=== PATIENT | female | born 1945 | race Caucasian/White ===

== ENCOUNTER → 2016-06-05 | Outpatient (CLI) | payer MEDICARE, OTHER ==
[2016-06-05 10:40] LABS: Basophils % (A) 1 %; CH 29.3; CHCM 33.3; Eosinophils # (A) 0.1 k/uL (0-0.7); Eosinophils % (A) 2 %; HCT 44.8 % (34.0-46.0); HDW 2.41; HGB 14.3 gm/dL (11.4-16.0); Luc # (Auto) 0.08; Luc % (Auto) 2; Lymphocytes # (A) 1.7 k/uL (1.0-4.8); Lymphocytes % (A) 37 %; MCH 28.3 pg (25.0-35.0); MCHC 31.8 g/dL (31.0-37.0); MCV 88.7 fL (80.0-100.0); Mean Platelet Volume 6.9; Monocytes # (A) 0.3 k/uL (0-1.0); Monocytes % (A) 6 %; Neutrophils # (A) 2.3 k/uL (1.3-7.7); Neutrophils % (A) 51 %; RBC 5.05 m/uL (3.80-5.40); RDW 13.4 % (11.5-15.5); WBC 4.5 k/uL (3.8-10.6)
[2016-06-05 11:01] LABS: ALT 37 U/L (9-52); AST 24 U/L (14-36); Alkaline Phosphatase 61 U/L (38-126); Anion Gap 10 mmol/L; Blood Urea Nitrogen 14 mg/dL (7-17); Calcium 9.9 mg/dL (8.4-10.2); Carbon Dioxide 29 mmol/L (22-30); Chloride 103 mmol/L (98-107); Cholesterol 204 mg/dL (<200); Creatine Kinase 69 U/L (30-135); Glucose 96 mg/dL (74-99); HDL Cholesterol 69 mg/dL (40-60); Non-African American GFR(MDRD) >60 (>60 ml/min/1.73 sqM); Sodium 142 mmol/L (137-145); Total Bilirubin 0.6 mg/dL (0.2-1.3); Total Protein 7.1 g/dL (6.3-8.2); Triglycerides 106 mg/dL (<150)
== END | disposition home or self-care (01) ==
LOC: LABWHC1 10:00
PROVIDERS: ATTEND Family Medicine
DX: E78.5 Hyperlipidemia, unspecified (principal); E03.9 Hypothyroidism, unspecified
CPT/HCPCS: 36415; 80053; 80061; 82550; 84439; 84443; 85025

== ENCOUNTER → 2019-04-08 | Outpatient (CLI) | payer MEDICARE, OTHER ==
--- NOTE | 2019-04-09 14:38 | MM ---
Reason for exam: screening (asymptomatic). History: Patient is postmenopausal and is nulliparous. Family history of breast cancer in aunt. Physical Findings: A clinical breast exam by your physician is recommended on an annual basis and results should be correlated with mammographic findings. MG 3D Screening Mammo W/Cad Bilateral CC and MLO view(s) were taken. The breast tissue is heterogeneously dense. This may lower the sensitivity of mammography. There are benign appearing round calcifications bilaterally. Asymmetric breast tissue left upper breast, stable. There is no discrete abnormality. ASSESSMENT: Benign, BI-RAD 2 RECOMMENDATION: Routine screening mammogram of both breasts in 1 year.
== END | disposition home or self-care (01) ==
LOC: RADMAMWWP 14:27
PROVIDERS: ATTEND Family Medicine
DX: Z12.31 Encounter for screening mammogram for malignant neoplasm of breast (principal)
CPT/HCPCS: 77063; 77067

== ENCOUNTER 2019-06-13 15:51 | Observation (INO) | payer MEDICARE, OTHER ==
[2019-06-13] MEDS ORDERED: SODIUM CHLORIDE 0.9% 1,000 ML IV STA (16:56)
--- NOTE | 2019-06-13 16:56 | ED ---
Chest Pain HPI - General Chief Complaint: Chest Pain Stated Complaint: chest pressure Time Seen by Provider: 06/13/19 16:19 Source: patient, RN notes reviewed, old records reviewed Mode of arrival: ambulatory Limitations: no limitations - History of Present Illness Initial Comments: This is a 73-year-old female here with multiple nonspecific complaints. Patient complaining of multiple respiratory symptoms cough congestion runny nose nausea no vomiting also complaining of baby's test. No significant shortness of breath or sweating. Patient has occasional chills but no fevers. Otherwise no travel history no sick contacts patient without significant other complaining patient has been on multiple different outpatient medications including upper respiratory medications antibiotics and steroids with no help MD Complaint: chest pain, other (URI symptoms) -: days(s) Onset: during rest Pain Location: substernal Pain Radiation: none Severity: moderate Severity scale (1-10): 5 Quality: tightness, aching Consistency: intermittent Improves With: nothing, nitroglycerin Worsens With: nothing Context: recent illness Anginal Symptoms: nausea, dyspnea Other Symptoms: cough Treatments Prior to Arrival: none - Related Data Home Medications Medication Instructions Recorded Confirmed Atorvastatin [Lipitor] 40 mg PO DAILY 05/01/16 05/01/16 Levothyroxine Sodium [Synthroid] 75 mcg PO DAILY 05/01/16 05/01/16 Previous Rx's Medication Instructions Recorded Aspirin 81 mg PO DAILY #30 chewable 05/03/16 LORazepam [Ativan] 0.5 mg PO BID PRN #20 tab 05/03/16 Nitroglycerin Sl Tabs [Nitrostat] 0.4 mg SUBLINGUAL Q5M PRN #50 tab 05/03/16 Allergies Allergy/AdvReac Type Severity Reaction Status Date / Time diazepam Allergy Unknown Verified 06/13/19 15:55 hydroxyzine [From Atarax] Allergy Unknown Verified 06/13/19 15:55 lidocaine Allergy Unknown Verified 06/13/19 15:55 tetrahydrozoline Allergy Unknown Verified 06/13/19 15:55 [From Visine] Review of Systems ROS Statement: Those systems with pertinent positive or pertinent negative responses have been documented in the HPI. ROS Other: All systems not noted in ROS Statement are negative. EKG Findings - EKG Comments: EKG Findings:: EKG shows sinus a rate of 78, NE 132, QRS 90, QTc 478 Past Medical History Past Medical History: Hyperlipidemia, Thyroid Disorder History of Any Multi-Drug Resistant Organisms: None Reported Past Surgical History: Hysterectomy, Tonsillectomy Past Anesthesia/Blood Transfusion Reactions: No Reported Reaction Past Psychological History: Depression Smoking Status: Never smoker Past Alcohol Use History: None Reported Past Drug Use History: None Reported - Past Family History Mother Family Medical History: Coronary Artery Disease (CAD) Father Family Medical History: Dementia General Exam Limitations: no limitations General appearance: alert, in no apparent distress Head exam: Present: atraumatic, normocephalic, normal inspection Eye exam: Present: normal appearance, PERRL, EOMI. Absent: scleral icterus, conjunctival injection, periorbital swelling ENT exam: Present: normal exam, mucous membranes moist Neck exam: Present: normal inspection. Absent: tenderness, meningismus, lymphadenopathy Respiratory exam: Present: normal lung sounds bilaterally. Absent: respiratory distress, wheezes, rales, rhonchi, stridor Cardiovascular Exam: Present: regular rate, normal rhythm, normal heart sounds. Absent: systolic murmur, diastolic murmur, rubs, gallop, clicks GI/Abdominal exam: Present: soft, normal bowel sounds. Absent: distended, tenderness, guarding, rebound, rigid Extremities exam: Present: normal inspection, full ROM, normal capillary refill. Absent: tenderness, pedal edema, joint swelling, calf tenderness Back exam: Present: normal inspection Neurological exam: Present: alert, oriented X3, CN II-XII intact Psychiatric exam: Present: normal affect, normal mood Skin exam: Present: warm, dry, intact, normal color. 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 cherry agrees for admissionspoke w Dr Red damico for admission Chest Pain MDM - MDM 73 female to the ED for evaluation patient is a for evaluation regarding abdominal pain. Chest pain. Patient be admitted for chest pain observation as her symptoms have not improved throughout ER stay patient does not feel comfortable with discharge Disposition Clinical Impression: Chest pain, Atypical chest pain Disposition: ADMITTED IP TO THIS HOSP Condition: Fair Is patient prescribed a controlled substance at d/c from ED?: No Referrals: Jaun Villegas MD [Primary Care Provider] - 1-2 days
[2019-06-13 17:32] LABS: Basophils % (A) 1 %; Eosinophils # (A) 0.1 k/uL (0-0.7); Eosinophils % (A) 2 %; HCT 42.1 % (34.0-46.0); HGB 13.8 gm/dL (11.4-16.0); Lymphocytes # (A) 1.3 k/uL (1.0-4.8); Lymphocytes % (A) 19 %; MCHC 32.9 g/dL (31.0-37.0); MCV 88.2 fL (80.0-100.0); Mean Platelet Volume 7.3; Monocytes # (A) 0.2 k/uL (0-1.0); Monocytes % (A) 3 %; Neutrophils # (A) 5.2 k/uL (1.3-7.7); Neutrophils % (A) 75 %; Platelet Count 238 k/uL (150-450); RBC 4.77 m/uL (3.80-5.40); WBC 6.9 k/uL (3.8-10.6)
[2019-06-13 17:38] LABS: Albumin 4.1 g/dL (3.5-5.0); Calcium 9.4 mg/dL (8.4-10.2); Phosphorus 3.5 mg/dL (2.5-4.5); Potassium 3.9 mmol/L (3.5-5.1); Total Bilirubin 0.4 mg/dL (0.2-1.3); Total Protein 6.5 g/dL (6.3-8.2)
--- NOTE | 2019-06-13 17:47 | XR ---
EXAMINATION TYPE: XR chest 2V DATE OF EXAM: 06/13/2019 COMPARISON: 04/23/2016 HISTORY: Chest pain with nonproductive cough TECHNIQUE: Frontal and lateral views of the chest are obtained. FINDINGS: There is no focal air space opacity, pleural effusion, or pneumothorax seen. There is pul monary hyperinflation and biapical lucency indicative of underlying COPD. The cardiac silhouette size is within normal limits. The osseous structures are intact. There is diffuse osseous demineralizat ion. Levoscoliosis of the radical lumbar spine. IMPRESSION: No acute cardiopulmonary process. Findings indicative of underlying COPD.
[2019-06-13 17:50] LABS: INR 0.9 (<1.2); Partial Thromboplastin Time 22.5 sec (22.0-30.0); Prothrombin Time 9.6 sec (9.0-12.0)
[2019-06-13] MEDS ORDERED: KETOROLAC 30 MG/ML 1 ML VIAL IVP STA (18:02)
[2019-06-13] MEDS ORDERED: methylPREDNISolone SOD SUCCI 125 MG/2 ML VIAL IV STA (18:02)
[2019-06-13] MEDS ORDERED: IPRATROPIUM-ALBUTEROL 3 ML NEB INHALATION STA (18:02)
[2019-06-13] MEDS ORDERED: MORPHINE SULFATE 4 MG/ML SYRINGE IV PRN (18:54)
[2019-06-13] MEDS ORDERED: ASPIRIN 81 MG PO STA (18:54)
[2019-06-13] MEDS ORDERED: diphenhydrAMINE 50 MG/ML 1 ML VIAL IVP STA (19:11)
[2019-06-13] MEDS ORDERED: FAMOTIDINE 20 MG/2 ML VIAL IV STA (19:22)
[2019-06-13] MEDS: NITROGLYCERIN SL TABS 0.4 MG TAB SUBLINGUAL PRN ×3 (19:44→20:10)
[2019-06-13] MEDS: SODIUM CHLORIDE 0.9% 1,000 ML IV SCH (19:44)
--- NOTE | 2019-06-13 20:26 | CT ---
EXAMINATION TYPE: CT angio chest DATE OF EXAM: 06/13/2019 COMPARISON: None HISTORY: Pain, unspecified. Pt poor historian. Is complaining of chest pain. CT DLP: 971.7 mGycm Automated exposure control for dose reduction was used. CONTRAST: Performed with IV Contrast, patient injected with 100 mL of Isovue 370. There are 3-D post processed images. FINDINGS: There is subsegmental atelectasis in the posterior lung rosales. Heart is borderline enlarged. There a re no hilar masses. There is no pleural effusion. There is no mediastinal adenopathy. Costophrenic an gles are clear. There is no pleural effusion. 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 I see no filling defects in the pulmonary arteries. Thoracic spine is intact. Bony thorax is intact. IMPRESSION: No evidence of pulmonary embolism. Borderline aneurysm ascending aorta. No dissection. No evidence of acute lung disease.
--- NOTE | 2019-06-13 20:40 | CT ---
EXAMINATION TYPE: CT abdomen pelvis w con DATE OF EXAM: 06/13/2019 COMPARISON: None HISTORY: Pain, unspecified. Pt poor historian. Is complaining of chest pain. CT DLP: 971.78 mGycm Automated exposure control for dose reduction was used. CONTRAST: Performed with IV Contrast, patient injected with 100 mL of Isovue 370. Multiple axial sections were obtained from the diaphragm to the floor the pelvis with intravenous con trast. FINDINGS: Lung bases are clear. There is no pleural effusion. There is 1 cm cyst anterior right lobe of the cari er. Gallbladder is distended. Gallbladder measures 3.3 cm in diameter. Spleen is intact stomach is in tact. There is no evidence of pancreatic mass. There is no adrenal mass. 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 T here is no hydronephrosis. There is no retroperitoneal adenopathy. Bladder distends smoothly. There is no inguinal hernia. There is no evidence of a pelvic mass. There is no free fluid in the pelvis. Lumbar disc spaces are fairly normal. Posterior elements are intact. Bony pelvis is intact. There is mild thoracolumbar dextroscoliosis. I see no focal bone destruction. Bony pelvis is intact. Hip joints are intact. Proximal femurs are intact. There is minimal acetabular spurring. There is no mesenteric edema. There is no ascites or free air. There is no sign of a bowel obstructio n. Delayed images show normal renal excretion. Appendix is not seen. No sign of appendicitis. IMPRESSION: There is a horseshoe kidney. No sign of acute abdomen and pelvis. No renal obstruction.
[2019-06-13] MEDS ORDERED: ONDANSETRON 4 MG/2 ML VIAL IVP PRN (22:10)
[2019-06-13] MEDS ORDERED: ATORVASTATIN 20 MG TAB PO SCH (22:15)
--- NOTE | 2019-06-13 22:30 | P.HPIM ---
History of Present Illness H&P Date: 06/13/19 Chief Complaint: chest pain 73-year-old female with history of hypothyroid, hyperlipidemia, history of broken heart syndrome 2.5 years ago Patient comes in today due to worsening chest pain of one-day duration. She reports that over the past week or 2 she's been having off-and-on chest discomfort but today it worse when she woke up she felt that she's having worsening chest pain described it as retrosternal pressure-like chest pain radiating to the right side rated at 10 over 10 in severity get getting worse as the day progressed not associated with any activity, not resolved with rest. She is reporting that pain is not related to deep breath or coughing. She re ports that she's been having upper respiratory infection like symptoms over the past 2 weeks for which he visited her PCP and received no antibiotics for that. However today she felt very weak and sick despite having chest pain she denies any trouble breathing denies nausea denies vomiting however she does report some fevers and chills with the coughing and some diarrhea a few times over the past week. Denies any dizziness denies any lightheadedness denies any palpitations denies any sweating. In the ED her EKG was unremarkable for any acute ST changes nitro did not help with the pain cardiac enzymes are negative chest x-ray did not show any acute process. CT angiogram of the chest did not show any acute PE but did suggest borderline ascending aortic aneurysm. 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 Patient admitted for cardiology evaluation. Otherwise she denies any GI bleeding denies any melena denies any recent traveling or any sick contacts Review of Systems Pertinent positives as noted in HPI. All other systems were reviewed and are negative Past Medical History Past Medical History: Hyperlipidemia, Thyroid Disorder History of Any Multi-Drug Resistant Organisms: None Reported Past Surgical History: Hysterectomy, Tonsillectomy Past Anesthesia/Blood Transfusion Reactions: No Reported Reaction Past Psychological History: Depression Smoking Status: Never smoker Past Alcohol Use History: None Reported Past Drug Use History: None Reported - Past Family History Mother Family Medical History: Coronary Artery Disease (CAD) Father Family Medical History: Dementia Medications and Allergies Home Medications Medication Instructions Recorded Confirmed Type Atorvastatin [Lipitor] 40 mg PO DAILY 05/01/16 05/01/16 History Levothyroxine Sodium [Synthroid] 75 mcg PO DAILY 05/01/16 05/01/16 History Aspirin 81 mg PO DAILY PRN 06/13/19 06/13/19 History Cetirizine HCl [Zyrtec] 5 mg PO DAILY 06/13/19 06/13/19 History Allergies Allergy/AdvReac Type Severity Reaction Status Date / Time diazepam Allergy Unknown Verified 06/13/19 22:03 hydroxyzine [From Atarax] Allergy Unknown Verified 06/13/19 22:03 lidocaine Allergy Unknown Verified 06/13/19 22:03 tetrahydrozoline Allergy Unknown Verified 06/13/19 22:03 [From Visine] Physical Exam Vitals: Vital Signs Temp Pulse Pulse Resp BP Pulse Ox 06/13/19 18:21 97.6 F 06/13/19 18:03 76 18 147/82 96 06/13/19 16:41 73 06/13/19 15:52 97.4 F L 88 18 185/85 97 Intake and Output 06/13/19 06/13/19 06/13/19 06:59 14:59 22:59 Other: Weight 64.41 kg Constitutional: No acute distress, conversant, pleasant Eyes: Anicteric sclerae, moist conjunctiva, no lid-lag Pupils equal round reactive to light ENMT: NC/AT Oropharynx clear, no erythema, exudates Neck: Supple, FROM, no masses, or JVD No carotid bruits No thyromegaly Lungs: Clear to auscultation Clear to percussion Normal respiratory effort, no accessory muscle use Cardiovascular: Heart regular in rate and rhythm, No murmurs, gallops, or rubs No peripheral edema right sided chest pain reproducible with palpation Abdominal: Soft discomfort to deep palpation of the epigastric region , no guarding, rebound or rigidity Abdomen moving with respiration Normoactive bowel sounds No hepatomegaly, No splenomegaly No palpable mass No abdominal wall hernia noted Skin: Normal temperature, tone, texture, turgor No induration No subcutaneous nodules No rash, lesions No ulcers Extremities: No digital cyanosis No clubbing Pedal pulses intact and symmetrical Radial pulses intact and symmetrical No calf tenderness Psychiatric: Alert and oriented to person, place and time Appropriate affect fair judgement Neuro Muscles Strength 5/5 in all 4 extremities Sensation to light touch grossly present throughout Cranial nerves II-XII grossly intact No focal sensory deficits Lymphatics: no palpable cervical or supraclavicular , or inguinal lymph nodes Results CBC & Chem 7: 06/13/19 16:35 06/13/19 16:35 Labs: Abnormal Lab Results - Last 24 Hours (Table) 06/13/19 Range/Units 16:35 Sodium 135 L (137-145) mmol/L Glucose 110 H (74-99) mg/dL Assessment and Plan Assessment: 73-year-old female with history of broken heart syndrome, hyperlipidemia, hypothyroid comes in due to 1 day history of worsening chest painadmitted under observation to rule out underlying acute coronary syndrome Plan: atypical chest pain , , rule out ACS cardiac monitoring trend cardiac enzymes, check ECHO , history of takatsubo syndrome nitro prn morphine prn cardiology evaluation acute bronchitis , 2/2 subacute viral syndrome symptomatic control pain control influenza testing negative hyperlipidemia, continue home meds hypothyroid, continue home meds GI ppx ppi dvt ppx heparin sc tid incidental finding on CTA chest , borderline ascending aortic aneurysm, cardio eval echo cardiogram CT abd showed horse shoe kidney CODE STATUS:full code Discussed with: Patient, ER, RN Anticipated length of stay < than [address]: home A total of 60 minutes was spent on the care of this complex patient more than 50% of the time was spent in counseling and care coordination.
[2019-06-13] MEDS: PANTOPRAZOLE 40 MG TABLET PO SCH (22:54)
[2019-06-14] MEDS: KETOROLAC 30 MG/ML 1 ML VIAL IVP SCH ×2 (03:21→06:07)
[2019-06-14] MEDS: HEPARIN SODIUM,PORCINE 5,000 UNIT/ML 1 ML VIAL SQ SCH ×3 (03:21→15:31)
[2019-06-14 05:36] LABS: Cholesterol 203 mg/dL (<200); HDL Cholesterol 58 mg/dL (40-60); LDL Cholesterol,Calculated 136 mg/dL (0-99); Triglycerides 45 mg/dL (<150)
[2019-06-14] MEDS: LEVOTHYROXINE 75 MCG TAB PO SCH ×2 (06:06→06:09)
[2019-06-14] MEDS: SODIUM CHLORIDE 0.9% 1,000 ML IV SCH (06:06)
[2019-06-14] MEDS ORDERED: CAFFEINE CITRATE 60 MG/3 ML VIAL IV PRN (08:26)
[2019-06-14] MEDS ORDERED: SODIUM CHLORIDE 0.9% IV ONE (08:26)
[2019-06-14] MEDS ORDERED: AMINOPHYLLINE 500 MG/20 ML VIAL IV PRN (08:26)
[2019-06-14] MEDS ORDERED: DIPYRIDAMOLE IV ONE (08:26)
[2019-06-14 08:41] VITALS: RESP 18
[2019-06-14] MEDS ORDERED: ASPIRIN 325 MG TAB PO SCH (09:00)
[2019-06-14] MEDS ORDERED: ASPIRIN 81 MG PO SCH (09:00)
[2019-06-14] MEDS ORDERED: METOPROLOL TARTRATE 25 MG TAB PO SCH (09:00)
[2019-06-14] MEDS ORDERED: FAMOTIDINE 20 MG/2 ML VIAL IV SCH (09:00)
--- NOTE | 2019-06-14 09:11 | US ---
EXAMINATION TYPE: US gallbladder DATE OF EXAM: 06/14/2019 COMPARISON: NONE CLINICAL HISTORY: Abdominal pain. EXAM MEASUREMENTS: Liver Length: 11.7 cm Gallbladder Wall: 0.2 cm CBD: 0.5 cm Right Kidney: 9.1 x 3.3 x 4.4 cm Pancreas: Head obscured by overlying bowel gas Liver: wnl Gallbladder: wnl Evidence for sonographic Bennett's sign: no CBD: wnl Right Kidney: No hydronephrosis or masses seen, inferior pole obscured IMPRESSION: No sonographic evidence of cholelithiasis nor acute cholecystitis. Partial obscuration of the pancreas and right kidney.
--- NOTE | 2019-06-14 09:27 | P.CRDCN ---
History of Present Illness History of present illness: HISTORY OF PRESENTING ILLNESS This is a pleasant 73-year-old female past medical history significant for dyslipidemia, hypothyroidism and chronic ALLERGIES. She follows in the off ice with Dr. Rubi. We have been asked to see in consultation for chest pain. She states for the previous one to 2 weeks she has been experiencing a lot of coughing, facial drainage and upper respiratory congestion. She has been following closely with her primary care physician and has been initiated on steroids and try to couple different courses of antibiotics. However the antibiotics cause some significant GI upset so she therefore has not completed the course. Friday she started developing a discomfort in the chest in the midsternal region with intermittent radiation to the right abdomen. The discomfort was described as an achy sensation. No radiation to the arm, back, neck or jaw. She had some mild associated shortness of breath. Denies nausea, vomiting, diaphoresis, dizziness or palpitations. Last evening while attempting to sleep she continued to have an achy sensation in the chest and noticed numbness and tingling both of her hands and an ache in her jaw. DIAGNOSTICS EKG reveals sinus mechanism with minimal ST depression noted inferolaterally. Chest xray to for an acute cardiopulmonary process with evidence of underlying COPD. CTA of the chest is negative for pulmonary embolism with no acute aortic dissection. CT of the abdomen and pelvis is unremarkable. Ultrasound of the gallbladder negative for cholecystitis. Laboratory reviewed, CBC unremarkable, sodium 135, potassium 3.9, creatinine 0.78, cardiac enzymes negative 3, NT proBNP 129, LDL 136 and TSH is 0.6. Current cardiac medications include aspirin when necessary for pain and atorvastatin 40 mg daily. Most recent stress test and echocardiogram performed in 2016 revealed preserved LV systolic function with ejection fraction 55-60% and no evidence of reversible cardiac ischemia. REVIEW OF SYSTEMS At the time of my exam: CONSTITUTIONAL: Denies fever or chills. CARDIOVASCULAR: Denies chest pain, shortness of breath, orthopnea, PND or palpitations. RESPIRATORY: Denies cough. GASTROINTESTINAL: Denies abdominal pain, diarrhea, constipation, nausea or vomiting. MUSCULOSKELETAL: Denies myalgias. NEUROLOGIC: Denies numbness, tingling or weakness. ENDOCRINE: Denies fatigue, weight change, polydipsia or polyurina. GENITOURINARY: Denies burning, hematuria or urgency with micturation. HEMATOLOGIC: Denies history of anemia or bleeding. PHYSICAL EXAMINATION Blood pressure 134/70 heart rate 82 afebrile and maintaining oxygen saturation on room air. CONSTITUTIONAL: No apparent distress. HEENT: Head is normocephalic. Pupils are equal, round. Sclerae anicteric. Mucous membranes of the mouth are moist. No JVD. No carotid bruit. CHEST EXAMINATION: Lungs are clear to auscultation. No chest wall tenderness is noted on palpation or with deep breathing. HEART EXAMINATION: Regular rate and rhythm. S1, S2 heard. No murmurs, gallops or rub. ABDOMEN: Soft, nontender. Positive bowel sounds. EXTREMITIES: 2+ peripheral pulses, no lower extremity edema and no calf tenderness. NEUROLOGIC EXAMINATION: Patient is awake, alert and oriented x3. ASSESSMENT Chest pain, atypical for angina. An acute coronary event has been ruled out. Dyslipidemia PLAN An acute coronary event has been ruled out. Baseline EKG abnormalities noted. For this reason we'll proceed with a Persantine stress test to assess for reversible cardiac ischemia. If reversibility suspected we will consider coronary angiography. Obtain 2-D echocardiogram and Doppler study to assess cardiac structure and function. Decrease daily aspirin to 81 mg. Initiate Lopressor 25 mg twice a day. Thank you kindly for this consultation. Nurse Practitioner note has been reviewed, I agree with a documented findings and plan of care. Patient was seen and examined. Past Medical History Past Medical History: Hyperlipidemia, Thyroid Disorder Additional Past Medical History / Comment(s): radiation to thyroid, endometriosis History of Any Multi-Drug Resistant Organisms: None Reported Past Surgical History: Hysterectomy, Tonsillectomy Additional Past Surgical History / Comment(s): endometriosis wrapped around bowels surgically resolved Past Anesthesia/Blood Transfusion Reactions: No Reported Reaction Past Psychological History: Depression Smoking Status: Never smoker Past Alcohol Use History: None Reported Past Drug Use History: None Reported - Past Family History Mother Family Medical History: Coronary Artery Disease (CAD) Father Family Medical History: Dementia Medications and Allergies Home Medications Medication Instructions Recorded Confirmed Type Atorvastatin [Lipitor] 40 mg PO HS 05/01/16 06/14/19 History Levothyroxine Sodium [Synthroid] 75 mcg PO DAILY 05/01/16 06/14/19 History Aspirin 162.5 - 325 mg PO QID PRN 06/14/19 06/14/19 History Cetirizine HCl [Zyrtec] 10 mg PO HS 06/14/19 06/14/19 History Clarithromycin [Biaxin] 500 mg PO Q12H 06/14/19 06/14/19 History Allergies Allergy/AdvReac Type Severity Reaction Status Date / Time diazepam Allergy Unknown Verified 06/14/19 08:58 hydroxyzine [From Atarax] Allergy Itching Verified 06/14/19 08:58 lidocaine Allergy Unknown Verified 06/14/19 08:58 tetrahydrozoline Allergy Swelling Verified 06/14/19 08:58 [From Visine] Physical Exam Vitals: Vital Signs Temp Pulse Pulse Pulse Resp BP BP 06/14/19 04:00 98.3 F 75 16 118/49 06/13/19 22:39 98.1 F 79 18 138/68 06/13/19 21:06 98.7 F 85 16 135/81 06/13/19 20:22 98.8 F 102 H 18 144/85 06/13/19 20:05 103 H 20 163/85 06/13/19 19:40 101 H 22 170/80 06/13/19 19:31 98.3 F 100 18 164/75 06/13/19 18:21 97.6 F 06/13/19 18:03 76 18 147/82 06/13/19 16:41 73 06/13/19 15:52 97.4 F L 88 18 185/85 Pulse Ox 06/14/19 04:00 95 06/13/19 22:39 94 L 06/13/19 21:06 93 L 06/13/19 20:22 92 L 06/13/19 20:05 95 06/13/19 19:40 98 06/13/19 19:31 98 06/13/19 18:21 06/13/19 18:03 96 06/13/19 16:41 06/13/19 15:52 97 Intake and Output 06/13/19 06/14/19 06/14/19 22:59 06:59 14:59 Other: Voiding Method Toilet Toilet # Voids 1 Weight 64.41 kg 65 kg Results 06/13/19 16:35 06/13/19 16:35 Cardiac Enzymes 06/13/19 06/13/19 06/13/19 Range/Units 16:35 16:35 22:30 AST 25 (14-36) U/L Troponin I <0.012 <0.012 (0.000-0.034) ng/mL 06/14/19 Range/Units 04:33 AST (14-36) U/L Troponin I <0.012 (0.000-0.034) ng/mL Coagulation 06/13/19 Range/Units 16:35 PT 9.6 (9.0-12.0) sec APTT 22.5 (22.0-30.0) sec Lipids 06/14/19 Range/Units 04:33 Triglycerides 45 (<150) mg/dL Cholesterol 203 H (<200) mg/dL HDL Cholesterol 58 (40-60) mg/dL CBC 06/13/19 Range/Units 16:35 WBC 6.9 (3.8-10.6) k/uL RBC 4.77 (3.80-5.40) m/uL Hgb 13.8 (11.4-16.0) gm/dL Hct 42.1 (34.0-46.0) % Plt Count 238 (150-450) k/uL Comprehensive Metabolic Panel 06/13/19 Range/Units 16:35 Sodium 135 L (137-145) mmol/L Potassium 3.9 (3.5-5.1) mmol/L Chloride 102 (98-107) mmol/L Carbon Dioxide 26 (22-30) mmol/L BUN 13 (7-17) mg/dL Creatinine 0.78 (0.52-1.04) mg/dL Glucose 110 H (74-99) mg/dL Calcium 9.4 (8.4-10.2) mg/dL AST 25 (14-36) U/L ALT 21 (4-34) U/L Alkaline Phosphatase 71 (38-126) U/L Total Protein 6.5 (6.3-8.2) g/dL Albumin 4.1 (3.5-5.0) g/dL Current Medications Generic Name Dose Route Start Last Admin Trade Name Freq PRN Reason Stop Dose Admin Aspirin 325 mg 06/14/19 09:00 Aspirin PO DAILY GAYLE Atorvastatin Calcium 20 mg 06/13/19 22:15 06/13/19 22:55 Lipitor PO 20 mg HS GAYLE Administration Heparin Sodium (Porcine) 5,000 unit 06/14/19 00:00 06/14/19 03:21 Heparin SQ Not Given Q8HR GAYLE Sodium Chloride 1,000 mls @ 100 mls/hr 06/13/19 19:00 06/14/19 06:06 Saline 0.9% IV 100 mls/hr .Q10H [facility] Administration Ketorolac Tromethamine 15 mg 06/14/19 00:00 06/14/19 06:07 Toradol IVP 06/17/19 22:09 Not Given Q6HR [facility] Levothyroxine Sodium 75 mcg 06/14/19 06:30 06/14/19 06:09 Synthroid PO Not Given DAILY@0630 [facility] Morphine Sulfate 4 mg 06/13/19 18:54 Morphine Sulfate (Inj) IV Q4HR PRN Chest Pain Nitroglycerin 0.4 mg 06/13/19 18:54 06/13/19 20:10 Nitrostat SUBLINGUAL 0.4 mg Q5M PRN Administration Chest Pain Ondansetron HCl 4 mg 06/13/19 22:10 Zofran IVP Q6HR PRN Nausea And Vomiting Pantoprazole Sodium 40 mg 06/13/19 22:15 06/13/19 22:54 Protonix PO 40 mg [id number]-[id number] [facility] Administration Intake and Output 06/13/19 06/14/19 06/14/19 22:59 06:59 14:59 Other: Voiding Method Toilet Toilet # Voids 1 Weight 64.41 kg 65 kg 06/13/19 16:35 06/13/19 16:35
[2019-06-14] MEDS: PANTOPRAZOLE 40 MG TABLET PO SCH (10:05)
[2019-06-14] MEDS ORDERED: AMINOPHYLLINE 500 MG/20 ML VIAL IV ONE (11:10)
--- NOTE | 2019-06-14 12:04 | NM ---
EXAMINATION TYPE: NM stress persantine cardiolit DATE OF EXAM: 06/14/2019 COMPARISON: 04/23/1916 HISTORY: Chest pain TECHNIQUE: After the intravenous administration of 10.1 mCi Tc 99m Sestamibi - Cardiolite resting SP ECT images acquired 52 minutes post injection. The patient received 37.1 mg Persantine, 27.4 mCi Tc 99m Sestamibi - Stress images obtained 38 minute s post injection FINDINGS: Review of stress and rest SPECT images demonstrates no distinct perfusion abnormality. Gated analysi s shows normal wall motion with an estimated left ventricular ejection fraction of 59 %. IMPRESSION: No scintigraphic evidence for reversible ischemia.
--- NOTE | 2019-06-14 15:46 | P.DS ---
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 She reports that over the past week or 2 she's been having off-and-on chest discomfort but today it worse when she woke up she felt that she's having worsening chest pain described it as retrosternal pressure-like chest pain radiating to the right side rated at 10 over 10 in severity get getting worse as the day progressed not associated with any activity, not resolved with rest. She is reporting that pain is not related to deep breath or coughing. She reports that she's been having upper respiratory infection like symptoms over the past 2 weeks for which he visited her PCP and received no antibiotics for that. However today she felt very weak and sick despite having chest pain she denies any trouble breathing denies nausea denies vomiting however she does report some fevers and chills with the coughing and some diarrhea a few times over the past week. Denies any dizziness denies any lightheadedness denies any palpitations denies any sweating. In the ED her EKG was unremarkable for any acute ST changes nitro did not help with the pain cardiac enzymes are negative chest x-ray did not show any acute process. CT angiogram of the chest did not show any acute PE but did suggest b orderline ascending aortic aneurysm. 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 Patient admitted for cardiology evaluation. Otherwise she denies any GI bleeding denies any melena denies any recent traveling or any sick contacts " Hospital course: Patient was admitted under observation for ablation chest pain. Her chest pain clearly was provoked by coughing and she had tenderness over her costochondral joints in lower part of her chest. She underwent the above studies that were negative for any acute pathology. Patient will clear by discharge by cardiology follow-up in their office. Encourage patient to continue Flonase and symptomatic treatment for her urine like symptoms and sinusitis. I provided the patient with ipratropium intranasal spray to try to decrease postnasal drip. My physical examination: Lungs are clear to auscultation Cardia vascular regular rhythm and rate Chest wall tender over the lower right side costochondral joint Abdomen soft nontender and soft Extremities no edema Patient Condition at Discharge: Fair Plan - Discharge Summary Discharge Rx Participant: No New Discharge Prescriptions: New Ipratropium Hestand 0.06%Nasal [Atrovent Nasal 0.06%] 1 spray EA NOSTRIL HS #1 bottle Continue Levothyroxine Sodium [Synthroid] 75 mcg PO DAILY Cetirizine HCl [Zyrtec] 10 mg PO HS Aspirin 162.5 - 325 mg PO QID PRN PRN Reason: Pain Discontinued Atorvastatin [Lipitor] 40 mg PO HS Clarithromycin [Biaxin] 500 mg PO Q12H Discharge Medication List Levothyroxine Sodium [Synthroid] 75 mcg PO DAILY 05/01/16 [History] Aspirin 162.5 - 325 mg PO QID PRN 06/14/19 [History] Cetirizine HCl [Zyrtec] 10 mg PO HS 06/14/19 [History] Ipratropium Hestand 0.06%Nasal [Atrovent Nasal 0.06%] 1 spray EA NOSTRIL HS #1 bottle 06/14/19 [Rx] Follow up Appointment(s)/Referral(s): Jaun Villegas MD [Primary Care Provider] - 1-2 days Gretchen Rubi MD [STAFF PHYSICIAN] - 06/28/19 4:15 pm (Appointment at [facility].) Discharge Disposition: HOME SELF-CARE
[2019-06-14 16:30] VITALS: BP 133/72; PULSE 76; TEMP 98.1
[2019-06-14] MEDS ORDERED: ATORVASTATIN 40 MG TAB PO SCH (21:00)
--- NOTE | 2019-06-14 22:10 | EST ---
EXERCISE STRESS AGE: 73 SEX: Female. HT: 5 feet 3 inches WT: 142 PROTOCOL: Persantine Cardiolite STAGE: DURATION OF EXERCISE: HEART RATE REST: 72 BLOOD PRESSURE REST: 152/67 MAXIMUM HEART RATE ACHIEVED: 123 MAXIMUM BLOOD PRESSURE: 159/71 85% MPHR: 124 100% MPHR: 146 METS: INDICATIONS: Chest pain. CLINICAL INFORMATION: This is a Persantine stress test to evaluate for CAD in a patient with persistent chest discomfort. Baseline EKG revealed normal sinus rhythm without significant ST-T changes. Patient was administered Persantine as per protocol, complained of headache and jaw pain and also had some shortness of breath. Heart rate changed from 72 to 111 beats per minute. Blood pressure changed from 150/67 to 157/71. Patient had nondescript symptoms and rare PVCs. EKG remained unremarkable. By EKG criteria this is an unremarkable Persantine stress test. The nuclear scan results, which are more pertinent, will be reported by the radiologist. FINAL IMPRESSION: By EKG criteria, this is an unremarkable Persantine stress test. The nuclear scan results will be reported by the radiologist. MMODL / IJN: [id number] /
--- NOTE | 2019-06-15 10:55 | ECHOF ---
Referral Reason: MEASUREMENTS -------- HEIGHT: 0.0 cm WEIGHT: 0.0 kg BP: 118/49 RVIDd: 3.1 cm (< 3.3) IVSd: 1.0 cm (0.6 - 1.1) LVIDd: 4.4 cm (3.9 - 5.3) LVPWd: 1.2 cm (0.6 - 1.1) IVSs: 1.5 cm LVIDs: 3.3 cm LVPWs: 1.8 cm LAESV Index (A-L): 33.49 ml/m Ao Diam: 3.2 cm (2.0 - 3.7) AV Cusp: 2.1 cm (1.5 - 2.6) LA Diam: 3.4 cm (2.7 - 3.8) MV EXCURSION: 13.666 mm (> 18.000) MV EF SLOPE: 80 mm/s (70 - 150) EPSS: 1.0 cm MV E Jeevan: 0.72 m/s MV DecT: 431 ms MV A Jeevan: 0.95 m/s MV E/A Ratio: 0.76 AR PHT: 382 ms RAP: 5.00 mmHg RVSP: 28.51 mmHg FINDINGS -------- Sinus rhythm. This was a technically adequate study. The left ventricular size is normal. Left ventricular wall thickness is normal. There is normal g lobal left ventricular contractility. Overall left ventricular systolic function is normal with, an EF between 55 - 60 %. The diastolic filling pattern is normal for the age of the patient 6.66. The right ventricle is normal in size. LA is midly dilated 29-33ml/m2. The right atrial size is normal. Interatrial and interventricular septum intact. There is [id number] aortic regurgitation. There is no evidence of aortic stenosis. Mild mitral regurgitation is present. Mild tricuspid regurgitation present. There is no evidence of pulmonary hypertension. The right v entricular systolic pressure, as measured by Doppler, is 28.51mmHg. Trace/mild (physiologic) pulmonic regurgitation. The aortic root size is normal. Normal inferior vena cava with normal inspiratory collapse consistent with estimated right atrial pre ssure of 5 mmHg. There is no pericardial effusion. CONCLUSIONS -------- 1. Sinus rhythm. 2. This was a technically adequate study. 3. The left ventricular size is normal. 4. Left ventricular wall thickness is normal. 5. There is normal global left ventricular contractility. 6. Overall left ventricular systolic function is normal with, an EF between 55 - 60 %. 7. The diastolic filling pattern is normal for the age of the patient 6.66 8. The right ventricle is normal in size. 9. LA is midly dilated 29-33ml/m2. 10. The right atrial size is normal. 11. Interatrial and interventricular septum intact. 12. There is [id number]-[id number] aortic regurgitation. 13. There is no evidence of aortic stenosis. 14. Mild mitral regurgitation is present. 15. Mild tricuspid regurgitation present. 16. There is no evidence of pulmonary hypertension. 17. The right ventricular systolic pressure, as measured by Doppler, is 28.51mmHg. 18. The aortic root size is normal. 19. Normal inferior vena cava with normal inspiratory collapse consistent with estimated right atrial pressure of 5 mmHg. 20. There is no pericardial effusion. GEOSPATIAL INFORMATION SCIENTIST: Erica Joseph RDCS
== END 2019-06-14 16:56 | disposition home or self-care (01) ==
LOC: EC 15:51 → 1SOBS 18:54
PROVIDERS: ADMIT Internal Medicine; ATTEND Internal Medicine
DX: R07.89 Other chest pain (principal); E78.5 Hyperlipidemia, unspecified; F32.9 Major depressive disorder, single episode, unspecified; E03.9 Hypothyroidism, unspecified; J32.9 Chronic sinusitis, unspecified; Q63.1 Lobulated, fused and horseshoe kidney; I71.2 Thoracic aortic aneurysm, without rupture; R91.8 Other nonspecific abnormal finding of lung field; I08.3 Combined rheumatic disorders of mitral, aortic and tricuspid valves; Z79.899 Other long term (current) drug therapy; Z79.890 Hormone replacement therapy; Z88.8 Allergy status to other drugs, medicaments and biological substances; Z88.4 Allergy status to anesthetic agent; Z90.710 Acquired absence of both cervix and uterus; Z90.89 Acquired absence of other organs; Z86.79 Personal history of other diseases of the circulatory system; Z92.3 Personal history of irradiation; Z87.42 Personal history of other diseases of the female genital tract; Z98.890 Other specified postprocedural states; Z82.49 Family history of ischemic heart disease and other diseases of the circulatory system; Z81.8 Family history of other mental and behavioral disorders
CPT/HCPCS: 96361; 96374; 96375; 99285; 36415; 93005; 93017; 93306; 83880; 80061; 80053; 83735; 84100; 84443; 84484 ×2; 85025; 85610; 85730; 87502; 71046; 76705; 71275; 74177; 78452; G0378 ×2; A9500; J1200; J2930; J0280; J1245; Q9967

== ENCOUNTER 2019-10-20 10:47 | Day surgery (SDC) | payer MEDICARE, OTHER ==
[2019-10-18 10:24] VITALS: BMI 24.7
[~2019-10-20 10:47] MED LIST: LACTATED RINGERS 1,000 ML IV SCH
[2019-10-20 12:11] VITALS: TEMP 96.9
[2019-10-20] MEDS ORDERED: LIDOCAINE 1% INJ 10MG/ML (20 ML MDV) ONE (12:23)
[2019-10-20] MEDS ORDERED: PROPOFOL 10 MG/ML 20 ML VIAL IV ONE (12:23)
--- NOTE | 2019-10-20 12:35 | P.PCN ---
Date of Procedure: 10/20/19 Procedure(s) Performed: BRIEF HISTORY: Patient is a 74-year-old, pleasant, white female, scheduled for an upper endoscopy as a part of evaluation of epigastric pain and epigastric fullness and intermittent dysphagia to solids and chronic cough for the last several months duration.. PROCEDURE PERFORMED: Esophagogastroduodenoscopy with biopsy. PREOPERATIVE DIAGNOSIS: chronic cough/epigastric fullness and intermittent dysphagia to solids. IV sedation per anesthesia. PROCEDURE: After informed consent was obtained, the patient was brought into the endoscopy unit. IV sedation was administered by Anesthesia under continuous monitoring. Initially the Olympus GIF-140 video endoscope was inserted into the mouth. Esophagus intubated without any difficulty. It was gradually advanced into the stomach and duodenum and carefully examined. The bulb and the second part of the duodenum appeared normal. The scope at this time was withdrawn to the stomach, adequately insufflated with air, and upon careful examination, mucosa of the antrum, mild gastritis and biopsies were done from this area. The body, cardia and the fundus appeared normal. The scope was then withdrawn into the esophagus. Small sliding type hiatal hernia noted. The GE junction was located at 39 cm from the incisors. There were linear erosions in the distal esophagus consistent with LA grade B reflux esophagitis. Rest of the esophagus appeared normal and the patient tolerated the procedure well. IMPRESSION: 1. Linear erosions in the distal esophagus consistent with LA grade B reflux esophagitis. 2. Small sliding Hiatal hernia. 3. Mild antral gastritis RECOMMENDATIONS: The findings of this examination were discussed with the patient as well as a family. She was advised to follow with the biopsy results. She will benefit from proton pump inhibitors and was recommended to take Prilosec [id number] 1 tablet daily half hour before dinnertime and follow antireflux. She will be seen in office in 4 weeks
[2019-10-20 13:12] VITALS: BP 155/74; PULSE 68; RESP 16
== END 2019-10-20 13:48 | disposition home or self-care (01) ==
LOC: ORWHC2ENDO 10:47
PROVIDERS: ATTEND Internal Medicine Gastroenterology
DX: K29.50 Unspecified chronic gastritis without bleeding (principal); K21.0 Gastro-esophageal reflux disease with esophagitis; K22.10 Ulcer of esophagus without bleeding; K44.9 Diaphragmatic hernia without obstruction or gangrene; E07.9 Disorder of thyroid, unspecified; Z79.890 Hormone replacement therapy; Z79.899 Other long term (current) drug therapy; Z88.4 Allergy status to anesthetic agent; Z88.8 Allergy status to other drugs, medicaments and biological substances; Z91.048 Other nonmedicinal substance allergy status; E78.5 Hyperlipidemia, unspecified
CPT/HCPCS: 88305; 43239; J2001; J2704

== ENCOUNTER → 2020-07-28 | Outpatient (CLI) | payer MEDICARE, OTHER ==
--- NOTE | 2020-08-02 12:21 | MM ---
Reason for exam: screening (asymptomatic). Last mammogram was performed 1 year and 4 months ago. History: Patient is postmenopausal and is nulliparous. Family history of breast cancer in aunt. Physical Findings: A clinical breast exam by your physician is recommended on an annual basis and results should be correlated with mammographic findings. MG 3D Screening Mammo W/Cad Bilateral CC and MLO view(s) were taken. Prior study comparison: April 08, 2019, bilateral MG 3d screening mammo w/cad. March 13, 2018, mammogram. January 21, 2017, mammogram. November 21, 2015, mammogram. The breast tissue is heterogeneously dense. This may lower the sensitivity of mammography. Palpable marker left breast. Medial asymmetric density right CC view does not persist on 3D images. ASSESSMENT: Incomplete: need additional imaging evaluation, BI-RAD 0 RECOMMENDATION: Ultrasound of the left breast. [facility] will attempt to contact patient to return for ultrasound.
== END ==
LOC: RADMAMWWP 11:53
PROVIDERS: ATTEND Family Medicine
DX: Z12.31 Encounter for screening mammogram for malignant neoplasm of breast (principal); R92.8 Other abnormal and inconclusive findings on diagnostic imaging of breast
CPT/HCPCS: 77063; 77067

== ENCOUNTER → 2020-08-09 | Outpatient (CLI) | payer MEDICARE, OTHER ==
--- NOTE | 2020-08-10 09:20 | USB ---
Reason for exam: additional evaluation requested from abnormal screening. History: Patient is postmenopausal and is nulliparous. Family history of breast cancer in aunt. Physical Findings: Nurse Summary: Patient complains of left breast thickening 11-12 o'clock (nurse roman). US Breast Workup Limited LT Technologist: Maday Fuller Left limited breast ultrasound including focal area of concern, retroareolar and axilla demonstrates no cystic or solid lesion seen. Scanned 9-2 o'clock. These results were verbally communicated with the patient and result sheet given to the patient on 08/09/20. ASSESSMENT: Negative, BI-RAD 1 RECOMMENDATION: Return to routine screening mammogram schedule for both breasts. Manage patient on a clinical basis.
== END | disposition home or self-care (01) ==
LOC: RADUSWWP 14:48
PROVIDERS: ATTEND Family Medicine
DX: R92.8 Other abnormal and inconclusive findings on diagnostic imaging of breast (principal); Z78.0 Asymptomatic menopausal state; Z80.3 Family history of malignant neoplasm of breast

== ENCOUNTER → 2021-03-20 | Outpatient (CLI) | payer MEDICARE, OTHER ==
--- NOTE | 2021-03-20 10:53 | US ---
EXAMINATION TYPE: US st tissue head/neck DATE OF EXAM: 03/20/2021 COMPARISON: CTA chest June 13, 2019 CLINICAL HISTORY: R59.0 ENLARGED LYMPH NODES. History of CANALES treatment Bilateral neck scanned, no evidence of suspicious lymphadenopathy. Largest lymph node on the right = 0.4x0.5cm Largest lymph node on the left = 0.5x0.3cm IMPRESSION: No suspicious recurrent tissue at level of thyroid bed. No suspicious adenopathy.
== END | disposition home or self-care (01) ==
LOC: RADUSWWP 09:29
PROVIDERS: ATTEND Family Medicine
DX: R59.0 Localized enlarged lymph nodes (principal)
CPT/HCPCS: 76536

== ENCOUNTER → 2021-07-17 | Outpatient (CLI) | payer MEDICARE, OTHER ==
--- NOTE | 2021-07-17 14:52 | CT ---
EXAMINATION TYPE: CT sinus wo con DATE OF EXAM: 07/17/2021 COMPARISON: NONE HISTORY: sinus congestion and drainage. Acute sinusitis. CT DLP: 416.5 mGycm. Automated Exposure Control for Dose Reduction was Utilized. TECHNIQUE: CT scan of the sinuses is performed without contrast, axial images are obtained, coronal r eformatted images are also reviewed. FINDINGS: Mild mucosal thickening inferior aspect bilateral maxillary sinuses. There is focal 1.1 cm mucosal thickening or polyp in the anterior left maxillary sinus axial image 18. Hypoplastic right f rontal sinus. No suspicious opacification or air-fluid levels in the visualized sinuses The ostiomeat al complex is patent bilaterally on the coronal images. And nasal septum is deviated to the left of m idline. Visualized portion of mastoid air cells show no abnormal opacification. The globes are intact bilate rally. IMPRESSION: Chronic maxillary sinusitis. No acute paranasal sinus disease.
== END | disposition home or self-care (01) ==
LOC: RADCTMAIN 14:22
PROVIDERS: ATTEND Otolaryngology
DX: J32.0 Chronic maxillary sinusitis (principal)
CPT/HCPCS: 70486

== ENCOUNTER → 2021-10-29 | Outpatient (CLI) | payer MEDICARE, OTHER ==
--- NOTE | 2021-10-30 14:31 | MM ---
Reason for Exam: Screening (asymptomatic). Last mammogram was performed 1 year(s) and 3 month(s) ago. Patient History: Menarche at age 12. Patient has no children. Left ovary removed at age 39. Right ovary removed at age 39. Hysterectomy at age 39. Postmenopausal. Maternal aunt had breast cancer. Risk Values: Ghazal 5 year model risk: 1.9%. NCI Lifetime model risk: 3.7%. Prior Study Comparison: 03/13/2018 Screening Mammogram, Unknown. 04/08/2019 Bilateral Screening Mammogram, [facility]. 07/28/2020 Bilateral Screening Mammogram, [facility]. Tissue Density: The breast tissue is heterogeneously dense. This may lower the sensitivity of mammography. Findings: Analyzed By CAD. No suspicious groups of microcalcifications, spiculated or lobular masses, architectural distortion or other secondary signs of malignancy are mammographically apparent. Overall Assessment: Benign, BI-RAD 2 Management: Screening Mammogram of both breasts in 1 year. A negative mammogram report should not preclude additional follow up of suspicious palpable abnormalities. Patient should continue monthly self breast exam. A clinical breast exam by your physician is recommended on an annual basis and results should be correlated with mammographic findings. Electronically signed and approved by: Clarke Goyal D.O. Radiologis
== END | disposition home or self-care (01) ==
LOC: RADMAMWWP 12:27
PROVIDERS: ATTEND Obstetrics & Gynecology
DX: Z12.31 Encounter for screening mammogram for malignant neoplasm of breast (principal); Z78.0 Asymptomatic menopausal state; Z80.3 Family history of malignant neoplasm of breast
CPT/HCPCS: 77063; 77067

== ENCOUNTER → 2022-09-17 | Outpatient (CLI) | payer MEDICARE, OTHER ==
--- NOTE | 2022-09-17 19:11 | BD ---
EXAMINATION TYPE: Axial Bone Density DATE OF EXAM: 09/17/2022 CLINICAL HISTORY: 77 years old Female. ICD-10 CODE: Z78.0 ASYMPTOMATIC [place] STATE Height: Weight: FRAX RISK QUESTIONS: Family History (Parent hip fracture): no History of Fracture in Adulthood: no Secondary Osteoporosis: yes 3. Menopause before 45: yes @ 39 RISK FACTORS HISTORY OF: Family History of Osteoporosis: no Active: yes Diet low in dairy products/other sources of calcium: no Postmenopausal woman: yes Lost more than 2 inches in height since high school: no Frequent falls: no Poor Health: no MEDICATIONS: Thyroid Medications: yes Which medication: Synthroid How Lon+ years Additional Medications: yes cholesterol EXAM MEASUREMENTS: Bone mineral densitometry was performed using the [employer] System. Bone mineral density as measured about the Lumbar spine is: ----- L1-L4(G/cm2): 0.997 T Score Values are as follows: ----- L1: -0.8 ----- L2: -1.9 ----- L3: -1.6 ----- L4: -1.8 ----- L1-L4: -1.5 Z Score Values are as follows: ----- L1: 1.0 ----- L2: 0.0 ----- L3: 0.2 ----- L4: 0.1 ----- L1-L4: 0.3 Bone mineral density baseline Bone mineral density about the R hip (g/cm2): 0.817 Bone mineral density about the L hip (g/cm2): 0.830 T Score values are as follows: -----R Neck: -2.4 -----L Neck: -2.0 -----R Total: -1.5 -----L Total: -1.4 Z Score values are as follows: -----R Neck: -0.3 -----L Neck: 0.1 -----R Total: 0.4 -----L Total: 0.5 Bone mineral density baseline FRAX%s: The graph provided illustrates a 18.1% chance for a major osteoporotic fx and a 6.0% chance f or the hips probability for fx in 10 years time. IMPRESSION: Osteopenia (T Score between -2.5 and -1). There is slightly increased risk of fracture and the patient may be considered for treatment. Re-Screen 2-5 years. NOTE: T-SCORE=SD OF THE YOUNG ADULT MEAN.
== END | disposition home or self-care (01) ==
LOC: RADBDWWP 14:14
PROVIDERS: ATTEND Obstetrics & Gynecology
DX: Z13.820 Encounter for screening for osteoporosis (principal); M85.89 Other specified disorders of bone density and structure, multiple sites; Z78.0 Asymptomatic menopausal state
CPT/HCPCS: 77080

== ENCOUNTER → 2022-10-31 | Outpatient (CLI) | payer MEDICARE, OTHER ==
--- NOTE | 2022-11-01 17:05 | MM ---
Reason for Exam: Screening (asymptomatic). Last screening mammogram was performed 12 month(s) ago. Patient History: Menarche at age 12. Patient has no children. Left ovary removed at age 39. Right ovary removed at age 39. Hysterectomy at age 39. Postmenopausal. Maternal aunt had breast cancer. Risk Values: Ghazal 5 year model risk: 1.9%. NCI Lifetime model risk: 3.4%. Prior Study Comparison: 04/08/2019 Bilateral Screening Mammogram, [facility]. 07/28/2020 Bilateral Screening Mammogram, [facility]. 10/29/2021 Bilateral MG 3D screening mammo w/cad, [facility]. Tissue Density: The breast tissue is heterogeneously dense. This may lower the sensitivity of mammography. Findings: Analyzed By CAD. Pattern appears symmetrical and stable. No significant interval change is evident. No suspicious groups of microcalcifications, spiculated or lobular masses, architectural distortion or other secondary signs of malignancy are mammographically apparent. Overall Assessment: Negative, BI-RAD 1 Management: Screening Mammogram of both breasts in 1 year. A negative mammogram report should not preclude additional follow up of suspicious palpable abnormalities. Patient should continue monthly self breast exam. A clinical breast exam by your physician is recommended on an annual basis and results should be correlated with mammographic findings. Electronically signed and approved by: Clarke Goyal D.O. Radiologis
== END | disposition home or self-care (01) ==
LOC: RADMAMWWP 12:20
PROVIDERS: ATTEND Obstetrics & Gynecology
DX: Z12.31 Encounter for screening mammogram for malignant neoplasm of breast (principal); Z78.0 Asymptomatic menopausal state; Z80.3 Family history of malignant neoplasm of breast
CPT/HCPCS: 77063; 77067

== ENCOUNTER → 2023-12-24 | Outpatient (CLI) | payer MEDICARE, OTHER ==
--- NOTE | 2024-01-10 12:11 | MM ---
Reason for Exam: Screening (asymptomatic). Last mammogram was performed 1 year(s) and 2 month(s) ago. Patient History: Menarche at age 12. Patient has no children. Left ovary removed at age 39. Right ovary removed at age 39. Hysterectomy at age 39. Postmenopausal. Maternal aunt had breast cancer. Risk Values: Ghazal 5 year model risk: 1.9%. NCI Lifetime model risk: 3.1%. Prior Study Comparison: 07/28/2020 Bilateral Screening Mammogram, [facility]. 10/29/2021 Bilateral MG 3D screening mammo w/cad, [facility]. 10/31/2022 Bilateral MG 3D screening mammo w/cad, [facility]. Tissue Density: The breasts are heterogeneously dense, which may obscure small masses. Findings: Analyzed By CAD. There is no suspicious group of microcalcifications or new suspicious mass in either breast. Overall Assessment: Negative, BI-RAD 1 Management: Screening Mammogram of both breasts in 1 year. . Patient should continue monthly self-breast exams. A clinical breast exam by your physician is recommended on an annual basis. This exam should not preclude additional follow-up of suspicious palpable abnormalities. Note on Ghazal scores and lifetime risk: 1. A Ghazal score greater than 3% is considered moderate risk. If this is the case, consider specialist referral to assess eligibility for a risk reducing agent. 2. If overall lifetime risk for the development of breast cancer is 20% or higher, the patient may qualify for future screening with alternating mammogram and breast MRI. Electronically signed and approved by: Robbin Tristan M.D. Radiologist
== END | disposition home or self-care (01) ==
LOC: RADMAMWWP 18:50
PROVIDERS: ATTEND Family Medicine
DX: Z12.31 Encounter for screening mammogram for malignant neoplasm of breast (principal); R92.322 Mammographic fibroglandular density, left breast; Z78.0 Asymptomatic menopausal state; Z80.3 Family history of malignant neoplasm of breast; Z90.721 Acquired absence of ovaries, unilateral
CPT/HCPCS: 77063; 77067

== ENCOUNTER → 2024-05-06 | Outpatient (CLI) | payer MEDICARE, OTHER ==
[2024-05-06 16:01] LABS: ALT 13 U/L (8-44); AST 17 U/L (13-35); Chol/HDL Ratio 5.19 Ratio; LDL Cholesterol,Calculated 250.9 mg/dL (0.0-131.0)
== END | disposition home or self-care (01) ==
LOC: LABWHC1 10:08
PROVIDERS: ATTEND Internal Medicine Cardiovascular Disease
DX: E78.2 Mixed hyperlipidemia (principal)
CPT/HCPCS: 36415; 80061; 84450; 84460